=== PATIENT | female | born 2005 | race African-American/Black ===

== ENCOUNTER 2025-10-16 17:50 | Emergency (ER) | payer OTHER ==
[~2025-10-16] VITALS: Ht 162.6 cm; Wt 58.0 kg
[2025-10-16 17:55] VITALS: TEMP 36.8; O2SAT 97
[2025-10-16 17:58] VITALS: BP 122/83; PULSE 85; RESP 16; O2SAT 99
== END 2025-10-16 19:31 | disposition left against medical advice (07) ==
LOC: ER 17:50
DX: S01.81XA Laceration without foreign body of other part of head, initial encounter (principal); X58.XXXA Exposure to other specified factors, initial encounter; Y93.89 Activity, other specified; Y92.89 Other specified places as the place of occurrence of the external cause; Y99.8 Other external cause status
CPT/HCPCS: 99281